=== PATIENT | female | born 1940 | race Caucasian/White ===

== ENCOUNTER 2021-12-19 00:28 | Emergency (ER) | payer OTHER, MEDICAID ==
[~2021-12-19] VITALS: Ht 165.1 cm; Wt 70.0 kg
[2021-12-19] MEDS ORDERED: IBUPROFEN 400MG TABLET PO ONE (01:15)
[2021-12-19] MEDS ORDERED: HYDROCODONE/ACETAMINOPHEN 5/325MG TABLET PO ONE (01:15)
[2021-12-19] MEDS ORDERED: HYDR-4001 MT (02:54)
[2021-12-19] MEDS ORDERED: IBUP-2028 MT (02:54)
[2021-12-19 04:27] VITALS: BP 146/68
== END 2021-12-19 04:31 | disposition home or self-care (01) ==
LOC: ER 00:28
DX: S82.831A Other fracture of upper and lower end of right fibula, initial encounter for closed fracture (principal); H40.9 Unspecified glaucoma; Z98.890 Other specified postprocedural states; Z88.0 Allergy status to penicillin; V03.00XA Pedestrian on foot injured in collision with car, pick-up truck or van in nontraffic accident, initial encounter; Y93.89 Activity, other specified; Y92.488 Other paved roadways as the place of occurrence of the external cause; Y99.8 Other external cause status
CPT/HCPCS: 29515; 73560; 73590; 73610; 73630; 99284